=== PATIENT | male | born 1985 | race Two or more races ===

== ENCOUNTER 2021-05-11 17:56 | Emergency (ER) | payer OTHER, MEDICAID ==
[2021-05-11] MEDS ORDERED: Ketorolac 30 MG/ML SDV IM ONE (18:32)
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
--- NOTE | 2021-05-11 21:11 | CR ---
Indication: Possible lytic lesion Technique: Two views left femur Comparison: AP pelvis same Findings: Bones: Alignment is normal. No fractures or bone lesions. Joint spaces: Unremarkable. Soft tissues: Unremarkable. Impression: Normal left femoral radiographs. No evidence lytic lesion. Dictated by Av Knowles MD @ 05/11/2021 9:10:22 PM (Electronically Signed)
== END 2021-05-11 21:24 | disposition home or self-care (01) ==
LOC: MW.ED 17:56
DX: S39.92XA Unspecified injury of lower back, initial encounter (principal); S50.312A Abrasion of left elbow, initial encounter; V29.9XXA Motorcycle rider (driver) (passenger) injured in unspecified traffic accident, initial encounter; Y93.55 Activity, bike riding; Y92.410 Unspecified street and highway as the place of occurrence of the external cause
CPT/HCPCS: 72170; 72220; 73552; 96372; 99284; J1885